=== PATIENT | female | born 1965 | race Caucasian/White ===

== ENCOUNTER → 2018-06-10 | Outpatient (CLI) | payer OTHER | LOC: FIMAGING 08:32 | PROVIDERS: ATTEND Family Medicine | DX: R10.9 Unspecified abdominal pain (principal) ==

== ENCOUNTER → 2018-08-14 | Outpatient (CLI) | payer SELFPAY | LOC: FIMAGING 09:28 | PROVIDERS: ATTEND Physician Assistant | DX: R10.11 Right upper quadrant pain (principal); K82.8 Other specified diseases of gallbladder | CPT/HCPCS: A9537 ==

== ENCOUNTER 2018-09-04 13:23 | Day surgery (SDC) | payer SELFPAY ==
--- NOTE | 2018-09-04 12:31 | PDHPUP ---
History & Physical Update H&P update statement: This history and physical update is based on an assessment of the patient which was completed after admission or registration (within 24 hours), but prior to the surgery/procedure. H&P update: H&P reviewed & patient examined, no change in patient's condition since H&P completed
[2018-09-04] MEDS ORDERED: LR 1,000 ML IV ONE (13:42)
[2018-09-04] MEDS ORDERED: BUPIVACAINE/EPI 0.5% 30 ML SDV ONE (15:14)
[2018-09-04] MEDS ORDERED: MIDAZOLAM 2 MG/2 ML VIAL IVP ONE (15:22)
[2018-09-04] MEDS ORDERED: SCOPOLAMINE HYDROBROMIDE 1 MG/3 DAYS PATCH TD ONE (15:23)
--- NOTE | 2018-09-04 15:24 | PDANEPAE ---
ANE Past Medical History - Cardiovascular History Hx Hypertension: No Hx Arrhythmias: No Hx Chest Pain: No Hx Coronary Artery / Peripheral Vascular Disease: No Hx CHF / Valvular Disease: No Hx Palpitations: No - Pulmonary History Hx COPD: No Hx Asthma/Reactive Airway Disease: No Hx Recent Upper Respiratory Infection: No Hx Oxygen in Use at Home: No Hx Sleep Apnea: No Sleep Apnea Screening Result - Last Documented: Negative Pulmonary History Comment: allergies - Neurologic History Hx Cerebrovascular Accident: No Hx Seizures: No Hx Dementia: No - Endocrine History Hx Diabetes: No - Renal History Hx Renal Disorders: No - Liver History Hx Hepatic Disorders: No - Neurological & Psychiatric Hx Hx Neurological and Psychiatric Disorders: No - Cancer History Hx Cancer: No - Congenital Disorder History Hx Congenital Disorders: No - GI History Hx Gastrointestinal Disorders: Yes Gastrointestinal History Comment: acid reflux - Other Health History Other Health History: allergies, sinus infection. bruises easily - Chronic Pain History Chronic Pain: No - Surgical History Prior Surgeries: BILAT MENISCUS REPAIR ANE Review of Systems Review of Systems: - Exercise capacity METS (RN): 5 METS ANE Patient History - Allergies Allergies/Adverse Reactions: shellfish derived Allergy (Verified 09/04/18 13:50) - Home Medications Home Medications: Natasha Allergy 09/04/18 [Last Taken 09/04/18] Zantac 09/04/18 [Last Taken 2 Days Ago ~09/02/18] - NPO status NPO Since - Liquids (Date): 09/04/18 NPO Since - Liquids (Time): 10:00 NPO Since - Solids (Date): 09/03/18 NPO Since - Solids (Time): 20:00 - Smoking Hx Smoking Status: Never smoked - Family Anes Hx Family Hx Anesthesia Complications: NONE ANE Labs/Vital Signs - Vital Signs Blood Pressure: 112/76 Heart Rate: 75 Respiratory Rate: 16 O2 Sat (%): 100 Height: 175.26 cm Weight: 68.039 kg ANE Physical Exam - Airway Neck exam: FROM Mallampati Score: Class 2 Mouth exam: normal dental/mouth exam - Pulmonary Pulmonary: no respiratory distress - Cardiovascular Cardiovascular: regular rate and rhythym - ASA Status ASA Status: II ANE Anesthesia Plan Anesthesia Plan: general endotracheal anesthesia
[2018-09-04] MEDS ORDERED: PROPOFOL/EMULSION 500 MG/50 ML BOTTLE IV ONE (15:46)
[2018-09-04] MEDS ORDERED: DEXAMETHASONE 4 MG/ML VIAL ONE (15:48)
[2018-09-04] MEDS ORDERED: ONDANSETRON 4 MG/2 ML VIAL ONE ×2 (15:48→17:21)
[2018-09-04] MEDS ORDERED: ROCURONIUM 50 MG/5 ML VIAL ONE (15:48)
[2018-09-04] MEDS ORDERED: METOCLOPRAMIDE 10 MG/2 ML VIAL ONE (15:48)
[2018-09-04] MEDS ORDERED: LIDOCAINE 2% 100 MG/5 ML SYR ONE (15:49)
[2018-09-04] MEDS ORDERED: RANITIDINE 50 MG/2 ML VIAL ONE (15:49)
--- NOTE | 2018-09-04 16:06 | POSTOPPROG ---
Post Op Note Date of Operation: 09/04/18 Surgeon: Harlan Waterman Anesthesiologist: Woodrow Maharaj Anesthesia: GET(General Endotracheal) Pre-op Diagnosis: Biliary dyskinesia Post-op Diagnosis: Same Procedure: Lap choly Findings: small duct Inf/Abcess present in the surg proc area at time of surgery?: No EBL: Minimal Complications: no immediate Specimen(s): gallbladder
[2018-09-04] MEDS ORDERED: NALOXONE HCL 0.4 MG/ML INJ IVP PRN (16:11)
[2018-09-04] MEDS ORDERED: DIAZEPAM 10 MG/2 ML SYR IVP PRN (16:31)
[2018-09-04] MEDS ORDERED: HYDROmorphONE/DILAUDID 1 MG/ML INJ IVP PRN (16:31)
[2018-09-04] MEDS ORDERED: fentaNYL 100 MCG/2 ML INJ IVP PRN (16:31)
[2018-09-04] MEDS ORDERED: ALBUTEROL 3 ML DEYVIAL IH PRN (16:31)
[2018-09-04] MEDS ORDERED: MEPERIDINE 25 MG/0.5 ML AMP IVP PRN (16:31)
[2018-09-04] MEDS ORDERED: HYDROCODONE/APAP 5/325 TAB PO PRN (16:31)
[2018-09-04] MEDS ORDERED: ONDANSETRON 4 MG/2 ML VIAL IVP PRN (16:31)
--- NOTE | 2018-09-04 16:51 | POSTANESTH ---
Post Anesthetic Evaluation Cardiovascular Status: Similar to Pre-Op Cond Respiratory Status: Similar to Pre-op Cond. Level of Consciousness/Mental Status: Can Participate in Eval, Mildly Sleepy, Arousable Pain Control: Adequate, Prn Tx Ordered Nausea/Vomiting Control: Adequate, Prn Tx Ordered Complications Possibly Related to Anesthesia: None Noted
[2018-09-04] MEDS ORDERED: fentaNYL 100 MCG/2 ML INJ ONE (17:28)
[2018-09-04] MEDS ORDERED: PROMETHAZINE HCL 25 MG/ML INJ ONE (17:47)
[2018-09-04] MEDS ORDERED: HYDROCODONE/APAP 5/325 TAB ONE (19:06)
[2018-09-04] MEDS ORDERED: traMADol 50 MG TAB PO ONE (19:10)
[2018-09-04] MEDS ORDERED: traMADol 50 MG TAB ONE (19:19)
[2018-09-04 19:32] VITALS: BP 105/67
--- NOTE | 2018-09-04 21:57 | GOP ---
[f rep st] OPERATIVE REPORT DATE OF OPERATION: 09/04/2018 SURGEON: Harlan Waterman MD ANESTHESIA: General. ANESTHESIOLOGIST: Jason Maharaj MD PREOPERATIVE DIAGNOSIS: Biliary dyskinesia. POSTOPERATIVE DIAGNOSIS: Biliary dyskinesia. PROCEDURE PERFORMED: Laparoscopic cholecystectomy. FINDINGS: See below. INDICATIONS: 53-year-old female with recurrent right upper quadrant pain. Findings were consistent with biliary dyskinesia. She is undergoing a laparoscopic cholecystectomy at this time. Risks and benefits were explained, including but not limited to bleeding, infection, open conversion, bile duct injury, unlikely retained stone necessitating postoperative ERCP as well as failure to resolve symptoms. All questions were answered. She desires to proceed. DESCRIPTION OF PROCEDURE: After general anesthesia was induced, the abdomen was pre-injected with 0.5% Marcaine with epinephrine. A curvilinear infraumbilical incision was created. The infraumbilical midline incision was created. A 10 mm trocar was placed under direct visualization. Three additional 5 mm upper abdominal ports were inserted. The gallbladder was retracted cephalad. This was a very thin-walled structure. There were multiple duodenal as well as omental adhesions present within the melvin. These were all bluntly dissected away, allowing for the cystic duct and artery to be circumferentially dissected, confirming the critical view of safety. The duct was notably small in caliber. The duct was multiply clipped and divided with the ultrasonic dissector as was the artery. The gallbladder was peeled from the liver bed fossa and brought through the umbilical port site intact using an EndoCatch pouch. Satisfactory hemostasis was assured. Trocars were removed under direct visualization. The infraumbilical midline fascia was closed with running Vicryl suture. The wounds were closed with Monocryl followed by Dermabond. The patient was taken to recovery uneventfully. Copy requested to: Antoni Arroyo MD /[id number]/MODL MTDD
[2018-09-05] MEDS ORDERED: PATCH REMOVAL 1 EA PATCH TD ONE (15:23)
== END 2018-09-04 19:42 | disposition home or self-care (01) ==
LOC: FSGY 13:23
PROVIDERS: ATTEND Surgery
PROC: 0FT44ZZ Resection of Gallbladder, Percutaneous Endoscopic Approach (ICD-10-PCS; principal; 2018-09-04 15:00)
DX: K82.8 Other specified diseases of gallbladder (principal)
CPT/HCPCS: J1100; J2001; J2250; J2405; J2550; J2704; J2765; J2780; J3010